=== PATIENT | female | born 1970 | race Caucasian/White ===

== ENCOUNTER 2019-04-08 05:57 | Day surgery (SDC) | payer OTHER ==
[~2019-04-08] VITALS: Ht 154.9 cm; Wt 87.3 kg
[2019-04-08] MEDS ORDERED: LIDOCAINE 2% 30 ML JELLY TP ONE (05:58)
[2019-04-08] MEDS ORDERED: BENZOCAINE 20% 50 MCG/SPRAY 57 GM TP ONE (05:58)
[2019-04-08] MEDS ORDERED: ALBUTEROL SULFATE 2.5 MG/0.5 ML NEB SOLUTION NEB ONE (05:58)
[2019-04-08] MEDS ORDERED: LIDOCAINE 4% 50 ML SOLUTION TP ONE (05:58)
[2019-04-08] MEDS ORDERED: SODIUM CHLORIDE 0.9% 1,000 ML IV ONE ×2 (06:09→06:30)
[2019-04-08] MEDS ORDERED: PREG50 PO (07:25)
[2019-04-08] MEDS ORDERED: PROP10TA73 PO (07:25)
[2019-04-08] MEDS ORDERED: RANI150T7 PO (07:25)
[2019-04-08] MEDS ORDERED: CALC-1038 PO (07:25)
[2019-04-08] MEDS ORDERED: DOCU-342 PO (07:25)
[2019-04-08] MEDS ORDERED: MONT10TA21 PO (07:25)
[2019-04-08] MEDS ORDERED: AMLO10TA7 PO (07:25)
[2019-04-08] MEDS ORDERED: BACL10TA PO (07:25)
[2019-04-08] MEDS ORDERED: FLUT16H NASAL (07:25)
[2019-04-08] MEDS ORDERED: BECL10.6 IH (07:25)
[2019-04-08] MEDS ORDERED: LOSA25TA41 PO (07:25)
[2019-04-08] MEDS ORDERED: LURA40 PO (07:25)
[2019-04-08] MEDS ORDERED: FAMO20 PO (07:25)
[2019-04-08] MEDS ORDERED: ASPI-1182 PO (07:25)
[2019-04-08] MEDS ORDERED: MULT1CAP32 PO (07:25)
[2019-04-08] MEDS ORDERED: SIMV-259 PO (07:25)
[2019-04-08] MEDS ORDERED: NAPR-1025 PO (07:25)
[2019-04-08] MEDS ORDERED: ALBU8.5H8 IH (07:25)
[2019-04-08] MEDS ORDERED: FentaNYL CITRATE-PF 100 MCG/2 ML VIAL ONE (07:30)
[2019-04-08] MEDS ORDERED: MIDAZOLAM HCL 2 MG/2 ML VIAL ONE (07:30)
[2019-04-08] MEDS ORDERED: MethylPREDNISolone SOD SUCC 125 MG/2 ML VIAL IVP ONE (08:15)
[2019-04-08] MEDS ORDERED: MethylPREDNISolone SOD SUCC 125 MG/2 ML VIAL ONE (08:25)
[2019-04-08] MEDS ORDERED: OXYGEN THERAPY IH SCH (20:00)
== END 2019-04-08 09:50 | disposition home or self-care (01) ==
LOC: SURGERY 05:57
PROVIDERS: ATTEND Internal Medicine Critical Care Medicine
DX: R05 Cough (principal); J34.89 Other specified disorders of nose and nasal sinuses; J98.8 Other specified respiratory disorders; J38.4 Edema of larynx; B37.0 Candidal stomatitis; K21.9 Gastro-esophageal reflux disease without esophagitis; E78.00 Pure hypercholesterolemia, unspecified; M19.90 Unspecified osteoarthritis, unspecified site; Z79.899 Other long term (current) drug therapy; Z98.890 Other specified postprocedural states
CPT/HCPCS: 31623; 31624; 71045; 84703; 87015; 87070; 87101; 87205; 87206; 87220; 88108; 88312; J2250; J2930; J3010; J7030